=== PATIENT | female | born 1965 | race Caucasian/White ===

== ENCOUNTER 2023-02-11 06:12 | Day surgery (SDC) | payer OTHER ==
[~2023-02-11] VITALS: Ht 182.9 cm; Wt 95.5 kg
[2023-02-11 06:30] VITALS: BP 131/79
[2023-02-11] MEDS ORDERED: LISINOPRIL-HCT1 EACH PO (06:33)
[2023-02-11] MEDS ORDERED: VITAMIN D250 MCG PO (06:34)
[2023-02-11] MEDS ORDERED: FISH OIL 1,0001 EAC6 PO (06:34)
[2023-02-11] MEDS ORDERED: CALCIUM500 MG PO (06:35)
--- NOTE | 2023-02-11 07:15 | NUR ---
EXERCISED MINISTRY OF PRESENCE. PT CONSENTED TO PRAYER. PRAYED FOR SUCCESSFUL SURGERY AND ABIDING PEACE.
--- NOTE | 2023-02-11 08:56 | NUR ---
02/11/23 0856 Myrna Guzman 0825- PT ARRIVES TO PACU, LEFT LATERAL POSITION. PT REACTIVE TO STIMULUS. DENIES PAIN OR NAUSEA. LR INFUSING TO RH IV, O2 AT 2L PER NC. ALL MONITORS APPLIED. PT ABD FIRM, NO PAIN ON PALPATION. ENCOURAGED TO PASS GAS. PT RESTING BACK TO RESTING AT THIS TIME. 0835- PT CONTINUES TO REST, WAKES EASILY TO VERBAL STIMULI. LR CONTINUES TO INFUSE. PT PASSING GAS. NO SIGNS OF DISTRESS. 0845- PT SATS 96% ON 2L PER NC, MOVED PT TO ROOM AIR AT THIS TIME. BREATHING EVEN AND NON LABORED. WILL CONTINUE TO MONITOR. PT CONTINUES TO REST AND PASS GAS.
[2023-02-11 09:06] VITALS: BP 107/76
--- NOTE | 2023-02-12 19:08 | OR ---
[facility] [address] [place], [place] [address] Signed DATE OF OPERATION: 02/11/2023 SURGEON: David Lopez MD PREOPERATIVE DIAGNOSES: 1. Gastroesophageal reflux symptoms. 2. Colon screening. POSTOPERATIVE DIAGNOSES: 1. Small hiatal hernia with low-grade distal esophagitis and minimal Schatzki's ring. 2. Small (probable) polyp in proximal descending colon. PROCEDURES: 1. Esophagogastroduodenoscopy with biopsy. 2. Total colonoscopy to cecum with cold morcellation polypectomy x1. ANESTHESIA: Intravenous sedation fentanyl 150 mcg (total and 8 mg total). INDICATION: This 57-year-old white woman is a patient of LIZET Quezada. She has never had colon evaluation and is here for colon screening. Additionally, she has gastroesophageal reflux type symptoms, but no significant dysphagia currently. She is admitted to undergo upper endoscopy and colonoscopy. She understands the risk of bleeding, infection, perforation. FINDINGS: Upper endoscopy showed a minimal Schatzki's ring and chronic distal esophagitis. There was no evidence of Pimentel's epithelium. Retroflexed view confirmed a small hiatal hernia. On colonoscopy, the prep was quite good. Complete colonoscopy was undertaken of the cecum. There was a small flat probable polyp that was very subtle in the proximal descending colon, this was excised completely. PROCEDURE IN DETAIL: The patient was brought to the endoscopy suite and placed in lateral decubitus position given topical lidocaine hypopharyngeal anesthesia. She was given intravenous sedation to the point of slurred speech and nystagmus with full cardiopulmonary monitoring. A bite block was placed. Electronically Signed By: DAVID LOPEZ MD 02/12/23 1908 PATIENT NAME: SULLY BARBOUR OPERATIVE REPORT DATE OF : 61 REPORT #: [id number] PHYSICIAN: DAVID LOPEZ MD PCP: HORTENSIA YU REPORT IS CONFIDENTIAL AND NOT TO BE RELEASED WITHOUT AUTHORIZATION [facility] [address] [place], [place] [address] Signed An Olympus video upper endoscope was passed in the hypopharynx. The vocal cords appeared normal. The scope was easily passed in the esophagus throughout its length that appeared normal except in the distal portion, there was mild chronic inflammatory change and a low-grade Schatzki's ring. The scope was easily passed in the stomach which was insufflated with air. Rugal folds were normal. The pylorus was normal. Scope was passed through into the duodenum, which was also normal. Biopsies were obtained there to assess for celiac disease. The scope was then withdrawn. Biopsies taken of the antrum and mid stomach for ETIENNE and pathologic testing. Retroflexed view showed a small hiatal hernia. The scope was withdrawn to the distal esophagus where biopsies were obtained of the esophageal mucosa and Schatzki's ring which was quite small. Careful withdrawal of scope allowed for biopsy of the midesophagus. Further withdrawal showed no other findings of note. Plans were then made for colonoscopy. Additional sedation was given and digital rectal examination was performed, which was normal. Olympus video colonoscope was passed in the rectum and manipulated throughout the colon ultimately intubating the cecum itself. The ileocecal valve and appendiceal orifice were normal. Mucosa behind the ileocecal valve was elevated for full inspection showing no sign of abnormality. The scope was then withdrawn and careful examination showed no sign of abnormality into the proximal descending colon where a flat mucosal abnormality was noted. It was not entirely certain that it was an adenomatous polyp. Narrow-band imaging did show a distinct mucosal change there, however. The lesion was excised with cold morcellation technique. Complete removal was noted. The scope was withdrawn and remaining colon and rectum appeared normal. She was taken to the recovery room in good condition. CONCLUDING DIAGNOSES: 1. Gastroesophageal reflux with small hiatal hernia, distal esophagitis and minimal Schatzki's ring. 2. Small polyp of proximal descending colon (probably). PLAN: Consideration of Prilosec 20 mg p.o. daily or Protonix 40 mg p.o. daily. Additionally, I would recommend repeat colonoscopy in 3-5 years if an adenomatous polyp was identified in 10 years if not. She will return to the ongoing care of LIZET Quezada as well. David Lopez MD Electronically Signed By: DAVID LOPEZ MD 02/12/23 1908 PATIENT NAME: SULLY BARBOUR OPERATIVE REPORT DATE OF : 61 REPORT #: [id number] PHYSICIAN: DAVID LOPEZ MD PCP: HORTENSIA YU REPORT IS CONFIDENTIAL AND NOT TO BE RELEASED WITHOUT AUTHORIZATION [address] [address] Signed /KEL /[id number] cc: LIZET Quezada Copies: HORTENSIA YU ~ Electronically Signed By: DAVID LOPEZ MD 02/12/23 1908 PATIENT NAME: SULLY BARBOUR LEIGH OPERATIVE REPORT DATE OF : 61 REPORT #: [id number] PHYSICIAN: DAVID LOPEZ MD PCP: HORTENSIA YU REPORT IS CONFIDENTIAL AND NOT TO BE RELEASED WITHOUT AUTHORIZATION
--- NOTE | 2023-02-16 18:24 | PATH ---
[facility] [address] [place], [place] [address] Signed SPECIMEN(S): A DUODENAL BIOPSY SPECIMEN(S): B ANTRUM/PYLORUS BIOPSY SPECIMEN(S): C LOWER ESOPHAGEAL BIOPSY SPECIMEN(S): D MIDDLE ESOPHAGEAL BIOPSY SPECIMEN(S): E DESCENDING/LEFT COLON POLYP SPECIMEN SOURCE: A. DUODENAL BIOPSY B. ANTRUM/PYLORUS BIOPSY C. LOWER ESOPHAGEAL BIOPSY D. MIDDLE ESOPHAGEAL BIOPSY E. DESCENDING/LEFT COLON POLYP CLINICAL HISTORY: Colonoscopy and EGD. GERD with esophagitis; initial screening colonoscopy. FINAL PATHOLOGIC DIAGNOSIS: A. Duodenum, biopsy: - No significant histopathology. B. Stomach, antrum/pylorus, biopsy: - No significant histopathologic alterations. C. Esophagus, biopsy: - Reflux esophagitis. - No evidence of Pimentel's esophagus. D. Middle esophagus, biopsy: - Portions of unremarkable squamous mucosa. E. Colon, descending/left, polypectomy: - Multiple fragments of tubular adenoma. COMMENT: A. The sections from the duodenal biopsy show portions of duodenal mucosa with long fingerlike villi. There is no villous atrophy, crypt hyperplasia or intraepithelial lymphocytosis making a diagnosis of celiac disease unlikely. There is no evidence of peptic duodenitis, microorganisms, abnormal infiltrates or neoplasia. B. The sections through the gastric biopsies show fragments of histologically unremarkable antral mucosa. There is no evidence of acute or chronic inflammation. There is no evidence of H. pylori, intestinal metaplasia, abnormal infiltrates or neoplasia. C. The sections through the biopsy show strips of reactive appearing squamous mucosa with basal cell hyperplasia. The epithelium is infiltrated by PATIENT NAME: SULLY BARBOUR PATHOLOGY DATE OF : 61 REPORT #: [id number] PHYSICIAN: PRASANNA HINTON PCP: HORTENSIA YU REPORT IS CONFIDENTIAL AND NOT TO BE RELEASED WITHOUT AUTHORIZATION [facility] [address] [place], [place] [address] Signed lymphocytes and small numbers of eosinophils. No glandular mucosa or intestinal metaplasia is identified. Superficial parakeratosis with small bacterial colonies are identified. D. The biopsy shows normal appearing squamous epithelium. There is no evidence of acute or chronic inflammation. No glandular mucosa is present. E. There is no evidence of high grade dysplasia or malignancy. TWK MICROSCOPIC EXAMINATION: Histologic sections of all submitted blocks are examined by light microscopy. These findings, together with the gross examination, support the pathologic diagnosis. GROSS DESCRIPTION: A. The specimen, labeled and designated "Anand, duodenal biopsy," is received in formalin and consists of two sanchez soft tissue fragments, ranging from 0.2-0.3 cm. Entirely submitted in (A1). B. The specimen, labeled and designated "Anand, antrum/pylorus biopsy," is received in formalin and consists of three sanchez soft tissue fragments, ranging from 0.2-0.3 cm. Entirely submitted in (B1). C. The specimen, labeled and designated "Anand, lower esophageal biopsy," is received in formalin and consists of two sanchez soft tissue fragments, ranging from 0.1-0.2 cm. Entirely submitted in (C1). D. The specimen, labeled and designated "Anand, middle esophageal biopsy," is received in formalin and consists of four sanchez soft tissue fragments, ranging from 0.2-0.4 cm. Entirely submitted in (D1). E. The specimen, labeled and designated "Anand, descending/left colon polyp," is received in formalin and consists of six sanchez soft tissue fragments, ranging from 0.2-0.3 cm. Entirely submitted in (E1). VB (under the direct supervision of a pathologist) The Gross Description was prepared using a voice recognition system. The report was reviewed for accuracy; however, sound-alike word errors, addition and/or deletions may occur. If there is any question about this report, please contact Client Services. ADDITIONAL NOTES: PATIENT NAME: SULLY BARBOUR [facility] PATHOLOGY DATE OF : 61 REPORT #: [id number] PHYSICIAN: PRASANNA PATHOLOGY PCP: HORTENSIA YU REPORT IS CONFIDENTIAL AND NOT TO BE RELEASED WITHOUT AUTHORIZATION [facility] [address] [place] [id number] Signed Immunohistochemical and/or in situ hybridization studies if performed in this case included appropriate positive controls that reacted as expected. This test was developed and its performance characteristics determined by [facility]. It has not been cleared or approved by the U.S. Food and Drug Administration. The FDA has determined that such clearance or approval is not necessary. This test is used for clinical purposes. It should not be regarded as investigational or for research. [facility] is certified under the Clinical Laboratory Improvement Amendments of 1988 (CLIA) as qualified to perform high complexity clinical laboratory testing. PERFORMING LABORATORY: Technical component was performed by [facility], [address] [place] [address] (CLIA# [id number]). Professional interpretation was performed by [facility], [address] [place] [address] (CLIA#:[id number]). Diagnostician: Chase Feliz MD Pathologist Electronically Signed 02/16/2023 Copies: ~ PATIENT NAME: SULLY BARBOUR PATHOLOGY DATE OF : 61 REPORT #: [id number] PHYSICIAN: PRASANNA PATHOLOGY PCP: HORTENSIA YU REPORT IS CONFIDENTIAL AND NOT TO BE RELEASED WITHOUT AUTHORIZATION
== END 2023-02-11 09:10 | disposition home or self-care (01) ==
LOC: OPS 06:12 → DS 06:12 → OPS 07:30 → DS 07:30 → OPS 09:10
PROVIDERS: ATTEND Surgery
PROC: 0DB68ZX Excision of Stomach, Via Natural or Artificial Opening Endoscopic, Diagnostic (ICD-10-PCS; 2023-02-11)
PROC: 0DB28ZX Excision of Middle Esophagus, Via Natural or Artificial Opening Endoscopic, Diagnostic (ICD-10-PCS; 2023-02-11)
PROC: 0DB38ZX Excision of Lower Esophagus, Via Natural or Artificial Opening Endoscopic, Diagnostic (ICD-10-PCS; 2023-02-11)
PROC: 0DBM8ZZ Excision of Descending Colon, Via Natural or Artificial Opening Endoscopic (ICD-10-PCS; principal; 2023-02-11 07:30)
PROC: 0DB98ZX Excision of Duodenum, Via Natural or Artificial Opening Endoscopic, Diagnostic (ICD-10-PCS; 2023-02-11 07:30)
DX: Z12.11 Encounter for screening for malignant neoplasm of colon (principal); K21.00 Gastro-esophageal reflux disease with esophagitis, without bleeding; Z90.49 Acquired absence of other specified parts of digestive tract; K44.9 Diaphragmatic hernia without obstruction or gangrene; K63.5 Polyp of colon; D12.4 Benign neoplasm of descending colon
CPT/HCPCS: 99153; G0500; J2250; J3010; J7121